=== PATIENT | male | born 2000 | race Caucasian/White ===

== ENCOUNTER 2020-08-12 14:51 | Emergency (ER) | payer OTHER, BC ==
--- NOTE | 2020-08-12 15:37 | EDM.PDOC ---
ED HPI GENERAL MEDICAL PROBLEM - General Chief Complaint: General Stated Complaint: CUT HAND AT WORK Time Seen by Provider: 08/12/20 15:15 Source of Information: Reports: Patient History Limitations: Reports: No Limitations - History of Present Illness INITIAL COMMENTS - FREE TEXT/NARRATIVE: presented to the ER with a c/o left middle finger injury while at work. It occurred within the last hour, while he was working on his tractor, reports that his finger was smashed. Applied pressure on it and decided to come to the ER for evaluation. last tetanus was 2012. Onset: Today Duration: Hour(s): (1) Location: Reports: Upper Extremity, Left Quality: Reports: Throbbing Severity: Mild Finger-Middle Pain Score (Numeric/FACES): 3 - Related Data Allergies Allergy/AdvReac Type Severity Reaction Status Date / Time No Known Allergies Allergy Verified 08/12/20 15:02 Home Meds: Home Meds Amoxicillin 500 mg PO BID #6 tab 08/12/20 [Rx] Past Medical History - Past Health History Medical/Surgical History: Denies Medical/Surgical History Social & Family History - Family History Family Medical History: No Pertinent Family History - Tobacco Use Tobacco Use Status *Q: Never Tobacco User Second Hand Smoke Exposure: No - Caffeine Use Caffeine Use: Reports: Soda - Recreational Drug Use Recreational Drug Use: No ED ROS GENERAL - Review of Systems Review Of Systems: See Below Constitutional: Reports: No Symptoms HEENT: Reports: No Symptoms Respiratory: Reports: No Symptoms Cardiovascular: Reports: No Symptoms Musculoskeletal: Reports: No Symptoms Neurological: Reports: No Symptoms ED EXAM, GENERAL - Physical Exam Exam: See Below Exam Limited By: No Limitations General Appearance: Alert, WD/WN Head: Atraumatic Neck: Normal Inspection Respiratory/Chest: No Respiratory Distress, Normal Breath Sounds Cardiovascular: Normal Peripheral Pulses Skin Exam: Other (there is 1 cm laceration to the tip of the left middle finger, under the nail without direct damages to the nail itself ) Course - Vital Signs Last Recorded V/S: Last Vital Signs Temp 36.2 C 08/12/20 15:03 Pulse 77 08/12/20 15:03 Resp 16 08/12/20 15:03 BP 140/81 08/12/20 15:03 Pulse Ox 99 08/12/20 15:03 - Orders/Labs/Meds Orders: Active Orders 24 hr Category Date Time Status Hand 2V Lt [CR] Stat Exams 08/12/20 15:02 Taken - Re-Assessments/Exams Free Text/Narrative Re-Assessment/Exam: wound was washed and cleaned no e/o FB nail was placed under the nail bed without complication after it was irrigated and cleaned. Ointment and sterile dressing were applied Tdap was given well tolerated prescription of amoxicillin was given Departure - Departure Time of Disposition: 15:52 Disposition: Home, Self-Care 01 Condition: Good Clinical Impression: Laceration of finger nail bed Qualifiers: Encounter type: initial encounter Qualified Code(s): S61.319A - Laceration without foreign body of unspecified finger with damage to nail, initial encounter - Discharge Information *PRESCRIPTION DRUG MONITORING PROGRAM REVIEWED*: Not Applicable *COPY OF PRESCRIPTION DRUG MONITORING REPORT IN PATIENT JOSIE: Not Applicable Prescriptions: Amoxicillin 500 mg PO BID #6 tab Instructions: Wound Care, Adult Referrals: PCP,None [Primary Care Provider] - Forms: ED Department Discharge Additional Instructions: - take antibiotics, one tab twice daily for 3 days - take tylenol for pain as needed - watch for signs of wound infection. Return to the ER if any. - ok to remove dressing after 48hrs, then apply anti bacterial ointment and change dressing daily Sepsis Event Note (ED) - Evaluation Sepsis Screening Result: No Definite Risk - Focused Exam Vital Signs: Vital Signs Temp Pulse Resp BP Pulse Ox 08/12/20 15:03 36.2 C 77 16 140/81 99 - My Orders Last 24 Hours: My Active Orders 08/12/20 15:02 Hand 2V Lt [CR] Stat - Assessment/Plan Last 24 Hours: My Active Orders 08/12/20 15:02 Hand 2V Lt [CR] Stat
[2020-08-12] MEDS ORDERED: Diphtheria,Pertussis(Acell),Tetanus Vaccine 0.5 ML SDV IM ONE (15:50)
--- NOTE | 2020-08-13 07:22 | CR ---
Date of Service: 08/12/20 Clinical Data: middle finger injury LEFT HAND: There is soft tissue swelling and deformity adjacent to the distal phalanx of the third digit consistent with the patient's clinical history. No acute fracture or dislocation. No lytic or blastic bone lesions. [id number] [facility]
== END 2020-08-12 16:00 | disposition home or self-care (01) ==
LOC: LB.ED 14:51
DX: S61.313A Laceration without foreign body of left middle finger with damage to nail, initial encounter (principal); Z23 Encounter for immunization; W23.0XXA Caught, crushed, jammed, or pinched between moving objects, initial encounter; Y99.0 Civilian activity done for income or pay
CPT/HCPCS: 73120-LT; 90471; 90715; 99283-25

== ENCOUNTER 2020-12-26 09:21 | Emergency (ER) | payer BC, OTHER ==
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
--- NOTE | 2020-12-28 08:37 | CR ---
DATE OF SERVICE: 12/26/20 CLINICAL DATA: Foot injury. LEFT FOOT: There is mild soft tissue swelling over the dorsum of the foot. The medial sesamoid bone adjacent to the head of the 1st metatarsal is bipartite. There is a faint lucency through the proximal diaphysis of the 3rd metatarsal. This is suspicious for a nondisplaced fracture. It may be a vascular channel. There is a sclerotic density within the distal aspect of the proximal phalanx of the 1st toe consistent with a benign bone island. No other significant findings. [id number] [facility]
== END 2020-12-26 10:30 | disposition home or self-care (01) ==
LOC: LB.ED 09:21
DX: S92.332A Displaced fracture of third metatarsal bone, left foot, initial encounter for closed fracture (principal); V86.56XA Driver of dirt bike or motor/cross bike injured in nontraffic accident, initial encounter
CPT/HCPCS: 73630-LT; 99284-25

== ENCOUNTER 2021-01-30 10:30 | Emergency (ER) | payer BC, OTHER ==
--- NOTE | 2021-01-30 11:13 | EDM.PDOC ---
ED HPI GENERAL MEDICAL PROBLEM - General Chief Complaint: Head Injury Stated Complaint: HEAD INJURY Time Seen by Provider: 01/30/21 11:13 Source of Information: Reports: Patient History Limitations: Reports: No Limitations - History of Present Illness INITIAL COMMENTS - FREE TEXT/NARRATIVE: injury to the head - an hour ago. no LOC, no headache, no dizziness. no numbness or tingling. he washed his wound and decided to come to the ER for further eval. Tdap is up to date Onset: Sudden Duration: Hour(s): (1) Location: Reports: Head Quality: Reports: Ache Severity: Mild Improves with: Reports: None Worsens with: Reports: None Posterior Head Pain Score (Numeric/FACES): 2 - Related Data Allergies Allergy/AdvReac Type Severity Reaction Status Date / Time No Known Allergies Allergy Verified 12/26/20 09:42 Past Medical History - Past Health History Medical/Surgical History: Denies Medical/Surgical History Social & Family History - Family History Family Medical History: No Pertinent Family History - Caffeine Use Caffeine Use: Reports: Soda ED ROS GENERAL - Review of Systems Review Of Systems: See Below Constitutional: Reports: No Symptoms HEENT: Reports: No Symptoms Respiratory: Reports: No Symptoms Cardiovascular: Reports: No Symptoms GI/Abdominal: Reports: No Symptoms : Reports: No Symptoms Neurological: Reports: No Symptoms Psychiatric: Reports: No Symptoms ED EXAM, SKIN/RASH Exam: See Below Exam Limited By: No Limitations General Appearance: Alert, WD/WN, No Apparent Distress Eye Exam: Bilateral Eye: EOMI, PERRL Neck: Normal Inspection Respiratory/Chest: No Respiratory Distress, Lungs Clear Cardiovascular: Normal Peripheral Pulses Neurological: Alert, Oriented, Normal Cognition, Normal Gait, No Motor/Sensory Deficits Psychiatric: Normal Affect, Normal Mood Skin: Other (there is a 2cm superficial wound to the scalp - no bleeding. no FB. ) Location, Skin: Head Course - Vital Signs Last Recorded V/S: Last Vital Signs Temp 36.6 C 01/30/21 11:00 Pulse 65 01/30/21 11:00 Resp 18 01/30/21 11:00 BP 137/85 01/30/21 11:00 Pulse Ox 99 01/30/21 11:00 - Re-Assessments/Exams Free Text/Narrative Re-Assessment/Exam: wound was washed and cleaned closed with wesly local abx ointment well tolerated Departure - Departure Time of Disposition: 11:13 Disposition: Home, Self-Care 01 Condition: Good Clinical Impression: Scalp laceration Qualifiers: Encounter type: initial encounter Qualified Code(s): S01.01XA - Laceration without foreign body of scalp, initial encounter - Discharge Information *PRESCRIPTION DRUG MONITORING PROGRAM REVIEWED*: Not Applicable *COPY OF PRESCRIPTION DRUG MONITORING REPORT IN PATIENT JOSIE: Not Applicable Instructions: Laceration Care, Adult Referrals: PCP,None [Primary Care Provider] - Forms: ED Department Discharge Additional Instructions: - keep wound dry and clean - apply antibiotics ointment on the wound once daily - return to the ER if any concerns Sepsis Event Note (ED) - Focused Exam Vital Signs: Vital Signs Temp Pulse Resp BP Pulse Ox 01/30/21 11:00 36.6 C 65 18 137/85 99 - Problem List & Annotations (1) Scalp laceration SNOMED Code(s): 234416025 Code(s): S01.01XA - LACERATION WITHOUT FOREIGN BODY OF SCALP, INITIAL ENCOUNTER Status: Acute Priority: Low Qualifiers: Encounter type: initial encounter Qualified Code(s): S01.01XA - Laceration without foreign body of scalp, initial encounter - Problem List Review Problem List Initiated/Reviewed/Updated: Yes - Assessment/Plan Plan: - keep wound dry and clean - apply antibiotics ointment on the wound once daily - return to the ER if headache or signs of wound infection
== END 2021-01-30 11:29 | disposition home or self-care (01) ==
LOC: LB.ED 10:30
DX: S01.01XA Laceration without foreign body of scalp, initial encounter (principal); W20.8XXA Other cause of strike by thrown, projected or falling object, initial encounter; Y99.0 Civilian activity done for income or pay
CPT/HCPCS: 12001; 99282; 99283